=== PATIENT | female | born 1955 | race Caucasian/White ===

== ENCOUNTER 2019-12-25 09:17 | Outpatient (CLI) | payer OTHER | END 2019-12-25 09:32 | disposition home or self-care (01) | LOC: NUCLEAR 09:17 | DX: I80.222 Phlebitis and thrombophlebitis of left popliteal vein (principal) ==

== ENCOUNTER → 2020-02-04 | Outpatient (CLI) | payer OTHER | END | disposition home or self-care (01) | LOC: NUCLEAR 11:21 | PROVIDERS: ATTEND Internal Medicine Hematology & Oncology | DX: I80.222 Phlebitis and thrombophlebitis of left popliteal vein (principal) ==

== ENCOUNTER 2020-11-13 07:53 | Outpatient (CLI) | payer OTHER | END 2020-11-13 07:55 | disposition home or self-care (01) | LOC: NUCLEAR 07:53 | PROVIDERS: ATTEND Internal Medicine Hematology & Oncology | DX: I80.222 Phlebitis and thrombophlebitis of left popliteal vein (principal) ==